=== PATIENT | female | born 1960 | race Caucasian/White ===

== ENCOUNTER 2016-11-18 00:45 | Observation (INO) | payer OTHER ==
[2016-11-18] MEDS ORDERED: SODIUM CHLORIDE 0.9% 1,000 ML IV STA (01:11)
--- NOTE | 2016-11-18 01:16 | ED ---
Back Pain HPI - General Chief Complaint: Back Pain/Injury Stated Complaint: back pain Time Seen by Provider: 11/18/16 01:02 Source: patient, RN notes reviewed, old records reviewed Limitations: no limitations - History of Present Illness Initial Comments: This is a 56-year-old female with chief complaint of mid back pain radiating towards her front for approximately 30 minutes. Patient reports this feels as a heaviness on her chest. Patient denies any shortness of breath, she does feel dizzy. She denies any nausea. She states that she's never had these pains before. She did eat dinner tonight. She was concerned that maybe was a gas both she reports that her pain was initially 7 out of 10. It slowly dwindled now 5 out of 10. Patient denies any flatulence or vomiting. Patient reports pain is not worse with position. Patient is a nonsmoker. History of high blood pressure. She is not a diabetic. Family history of heart disease. - Related Data Home Medications Medication Instructions Recorded Confirmed Atorvastatin [Lipitor] 20 mg PO HS 11/18/16 11/18/16 Venlafaxine HCl [Effexor] 50 mg PO DAILY 11/18/16 11/18/16 Allergies Allergy/AdvReac Type Severity Reaction Status Date / Time acetaminophen [From Lortab] Allergy Rash/Hives Verified 11/18/16 00:55 hydrocodone [From Lortab] Allergy Rash/Hives Verified 11/18/16 00:55 Review of Systems ROS Statement: Those systems with pertinent positive or pertinent negative responses have been documented in the HPI. ROS Other: All systems not noted in ROS Statement are negative. Past Medical History Past Medical History: Hypertension History of Any Multi-Drug Resistant Organisms: None Reported Past Surgical History: Hysterectomy Past Psychological History: No Psychological Hx Reported Smoking Status: Never smoker Past Alcohol Use History: Occasional Past Drug Use History: None Reported General Exam - General Exam Comments Initial Comments: Pleasant 56-year-old female. No distress. Limitations: no limitations General appearance: alert, in no apparent distress Head exam: Present: atraumatic, normocephalic, normal inspection Eye exam: Present: normal appearance, PERRL, EOMI. Absent: scleral icterus, conjunctival injection, periorbital swelling ENT exam: Present: normal exam, mucous membranes moist Neck exam: Present: normal inspection. Absent: tenderness, meningismus, lymphadenopathy Respiratory exam: Present: normal lung sounds bilaterally. Absent: respiratory distress, wheezes, rales, rhonchi, stridor Cardiovascular Exam: Present: regular rate GI/Abdominal exam: Present: soft, normal bowel sounds. Absent: distended, tenderness, guarding, rebound, rigid Extremities exam: Present: normal inspection, full ROM, normal capillary refill. Absent: tenderness, pedal edema, joint swelling, calf tenderness Back exam: Present: normal inspection Course Vital Signs 11/18/16 11/18/16 00:50 02:56 Temperature 97.2 F L 98.5 F Pulse Rate 75 79 Respiratory 18 20 Rate Blood Pressure 133/83 128/80 O2 Sat by Pulse 99 98 Oximetry Medical Decision Making - Medical Decision Making Is a 46-year-old female 30 minutes of mid back pain rating towards the front of her chest. EKG was performed no significant changes at this time. Patient was given GI cocktail IV fluids and lab work obtained. Patient reports that her pain did not diminish after a GI cocktail. She states it does feel like a heaviness on her chest. Patient's initial cardiac enzymes are all negative. Chest x-ray and KUB are also normal. Patient pain is producible. She does state she feels a little dizzy. Patient will be admitted for serial troponins. Discussed case with Dr. Daniel. She'll be admitted and have cardiology consult. - Lab Data Result diagrams: 11/18/16 01:28 11/18/16 01:28 Lab Results 11/18/16 11/18/16 11/18/16 Range/Units 01:28 01:28 01:28 WBC 4.6 (3.8-10.6) k/uL RBC 4.34 (3.80-5.40) m/uL Hgb 13.6 (11.4-16.0) gm/dL Hct 39.7 (34.0-46.0) % MCV 91.5 (80.0-100.0) fL MCH 31.4 (25.0-35.0) pg MCHC 34.3 (31.0-37.0) g/dL RDW 13.0 (11.5-15.5) % Plt Count 150 (150-450) k/uL Neutrophils % 50 % Lymphocytes % 37 % Monocytes % 7 % Eosinophils % 3 % Basophils % 1 % Neutrophils # 2.3 (1.3-7.7) k/uL Lymphocytes # 1.7 (1.0-4.8) k/uL Monocytes # 0.3 (0-1.0) k/uL Eosinophils # 0.1 (0-0.7) k/uL Basophils # 0.0 (0-0.2) k/uL PT (9.0-12.0) sec INR (<1.1) APTT (22.0-30.0) sec D-Dimer (<0.60) mg/L FEU Sodium 142 (137-145) mmol/L Potassium 4.0 (3.5-5.1) mmol/L Chloride 109 H (98-107) mmol/L Carbon Dioxide 30 (22-30) mmol/L Anion Gap 3 mmol/L BUN 16 (7-17) mg/dL Creatinine 0.80 (0.52-1.04) mg/dL Est GFR (MDRD) Af Amer >60 (>60 ml/min/1.73 sqM) Est GFR (MDRD) Non-Af >60 (>60 ml/min/1.73 sqM) Glucose 99 (74-99) mg/dL Calcium 9.1 (8.4-10.2) mg/dL Magnesium 2.2 (1.6-2.3) mg/dL Total Bilirubin 0.2 (0.2-1.3) mg/dL AST 26 (14-36) U/L ALT 34 (9-52) U/L Alkaline Phosphatase 60 (38-126) U/L Total Creatine Kinase 116 (30-135) U/L CK-MB (CK-2) 1.0 (0.0-2.4) ng/mL CK-MB (CK-2) Rel Index 0.9 Troponin I <0.012 (0.000-0.034) ng/mL Total Protein 6.1 L (6.3-8.2) g/dL Albumin 3.7 (3.5-5.0) g/dL 11/18/16 Range/Units 01:28 WBC (3.8-10.6) k/uL RBC (3.80-5.40) m/uL Hgb (11.4-16.0) gm/dL Hct (34.0-46.0) % MCV (80.0-100.0) fL MCH (25.0-35.0) pg MCHC (31.0-37.0) g/dL RDW (11.5-15.5) % Plt Count (150-450) k/uL Neutrophils % % Lymphocytes % % Monocytes % % Eosinophils % % Basophils % % Neutrophils # (1.3-7.7) k/uL Lymphocytes # (1.0-4.8) k/uL Monocytes # (0-1.0) k/uL Eosinophils # (0-0.7) k/uL Basophils # (0-0.2) k/uL PT 10.2 (9.0-12.0) sec INR 1.0 (<1.1) APTT 23.0 (22.0-30.0) sec D-Dimer 0.41 (<0.60) mg/L FEU Sodium (137-145) mmol/L Potassium (3.5-5.1) mmol/L Chloride (98-107) mmol/L Carbon Dioxide (22-30) mmol/L Anion Gap mmol/L BUN (7-17) mg/dL Creatinine (0.52-1.04) mg/dL Est GFR (MDRD) Af Amer (>60 ml/min/1.73 sqM) Est GFR (MDRD) Non-Af (>60 ml/min/1.73 sqM) Glucose (74-99) mg/dL Calcium (8.4-10.2) mg/dL Magnesium (1.6-2.3) mg/dL Total Bilirubin (0.2-1.3) mg/dL AST (14-36) U/L ALT (9-52) U/L Alkaline Phosphatase (38-126) U/L Total Creatine Kinase (30-135) U/L CK-MB (CK-2) (0.0-2.4) ng/mL CK-MB (CK-2) Rel Index Troponin I (0.000-0.034) ng/mL Total Protein (6.3-8.2) g/dL Albumin (3.5-5.0) g/dL 11/18/16 02:37 EKG shows normal sinus rhythm. Evidence of minor septal infarct age undetermined. Ventricular 72 bpm. KS interval 136 ms. QRS duration 86segs. QT/QTc is 414/453 ms. No evidence of ST elevation or T-wave inversion. Disposition Clinical Impression: Chest pain Disposition: ADMITTED IP TO THIS HOSP Condition: Stable Referrals: Narciso Salas DO [Primary Care Provider] - 1-2 days Time of Disposition: 03:27
[2016-11-18 01:42] LABS: Basophils % (A) 1 %; CH 32.1; CHCM 35.2; Eosinophils # (A) 0.1 k/uL (0-0.7); Eosinophils % (A) 3 %; HCT 39.7 % (34.0-46.0); HDW 2.83; HGB 13.6 gm/dL (11.4-16.0); Luc # (Auto) 0.14; Luc % (Auto) 3; Lymphocytes # (A) 1.7 k/uL (1.0-4.8); Lymphocytes % (A) 37 %; MCH 31.4 pg (25.0-35.0); MCHC 34.3 g/dL (31.0-37.0); MCV 91.5 fL (80.0-100.0); Mean Platelet Volume 7.1; Monocytes # (A) 0.3 k/uL (0-1.0); Monocytes % (A) 7 %; Neutrophils # (A) 2.3 k/uL (1.3-7.7); Neutrophils % (A) 50 %; RBC 4.34 m/uL (3.80-5.40); WBC 4.6 k/uL (3.8-10.6); WBC (Perox) 4.52
[2016-11-18 01:52] LABS: ALT 34 U/L (9-52); AST 26 U/L (14-36); Alkaline Phosphatase 60 U/L (38-126); Anion Gap 3 mmol/L; Blood Urea Nitrogen 16 mg/dL (7-17); Calcium 9.1 mg/dL (8.4-10.2); Carbon Dioxide 30 mmol/L (22-30); Chloride 109 mmol/L (98-107); Glucose 99 mg/dL (74-99); Magnesium 2.2 mg/dL (1.6-2.3); Non-African American GFR(MDRD) >60 (>60 ml/min/1.73 sqM); Sodium 142 mmol/L (137-145); Total Bilirubin 0.2 mg/dL (0.2-1.3); Total Protein 6.1 g/dL (6.3-8.2)
[2016-11-18 01:58] LABS: Prothrombin Time 10.2 sec (9.0-12.0)
[2016-11-18 02:12] LABS: Creatine Kinase 116 U/L (30-135)
--- NOTE | 2016-11-18 02:23 | XR ---
EXAM: XR Chest, 2 Views. CLINICAL HISTORY: Reason: Chest Pain TECHNIQUE: Frontal and lateral views of the chest. COMPARISON: No relevant prior studies available. FINDINGS: Lungs: Unremarkable. No consolidation. Pleural space: Unremarkable. No pneumothorax. Heart: Unremarkable. No cardiomegaly. Mediastinum: Unremarkable. Bones/joints: Unremarkable. IMPRESSION: No acute intrathoracic abnormality is seen.
[2016-11-18 02:25] LABS: Troponin I <0.012 ng/mL (0.000-0.034)
--- NOTE | 2016-11-18 02:26 | XR ---
EXAM: XR Abdomen, 1 View. CLINICAL HISTORY: Reason: Pain TECHNIQUE: Frontal upright views of the abdomen/pelvis. COMPARISON: No relevant prior studies available. FINDINGS: Gastrointestinal tract: Moderate amount of colonic stool throughout. Small air-fluid level in the left upper quadrant, likely in the gastric fundus, another in the medial right upper quadrant may be within the gastric pylorus or duodenal bulb, nonspecific, without significant gastric distention seen. No grossly dilated small or large bowel loops are identified either. Bones/joints: Unremarkable. IMPRESSION: Moderate colonic stool burden without grossly dilated bowel loops or evidence of free air seen, as above.
[2016-11-18] MEDS ORDERED: MAG HYDROX/AL HYDROX/SIMETH 30 ML, HYOSCYAMINE ELIXIR 10 ML, CIMETIDINE HCL 300 MG, LID... PO STA ×4 (02:43)
[2016-11-18] MEDS ORDERED: ACETAMINOPHEN TAB 325 MG TAB PO PRN (03:24)
[2016-11-18] MEDS ORDERED: ONDANSETRON 4 MG/2 ML VIAL IVP PRN (03:24)
[2016-11-18] MEDS ORDERED: KETOROLAC 30 MG/ML 1 ML VIAL IVP PRN (03:24)
[2016-11-18] MEDS ORDERED: NALOXONE 0.4 MG/ML 1 ML VIAL IV PRN (03:24)
[2016-11-18] MEDS ORDERED: SODIUM CHLORIDE 0.9% 1,000 ML IV SCH (03:30)
[2016-11-18 05:09] VITALS: BMI 27.5
[2016-11-18 07:09] LABS: Creatine Kinase 109 U/L (30-135)
[2016-11-18 07:20] LABS: Troponin I <0.012 ng/mL (0.000-0.034)
[2016-11-18 08:40] VITALS: TEMP 97.6
--- NOTE | 2016-11-18 08:42 | P.CRDCN ---
History of Present Illness Consult date: 11/18/16 Requesting physician: Tang Eubanks Consult reason: chest pain Chief complaint: Chest pain History of present illness: This is a 56-year-old female with history of hypertension, hyperlipidemia, who presents to the hospital with symptoms of mid back pain that radiated around to her abdomen. She denies any associated shortness of breath, no nausea, no diaphoresis. She denies any discomfort in the upper chest area. On her way in to the hospital, patient states that she did have some mild heartburn sensation. She denies any prior history of coronary artery disease, no family history of premature coronary artery disease.EKG on arrival here showed a normal sinus rhythm with no acute changes. Chest x-ray did not reveal any acute abnormality. KUB of the abdomen was performed which revealed moderate colonic stool without dilated bowel loops or evidence of free air. The pressure on arrival 132/82 with a heart rate in the 70s. She is 99% on room air. Troponins 2 have been negative, potassium 4.0, BUN 16, creatinine 0.8. CBC normal. The time of my examination this morning, patient is currently pain free, just complaints of feeling tired. Past Medical History Past Medical History: Hypertension History of Any Multi-Drug Resistant Organisms: None Reported Past Surgical History: Hysterectomy Past Anesthesia/Blood Transfusion Reactions: No Reported Reaction Past Psychological History: No Psychological Hx Reported Smoking Status: Never smoker Past Alcohol Use History: Occasional Past Drug Use History: None Reported - Past Family History Mother Family Medical History: CVA/TIA, Myocardial Infarction ([place]) Father Family Medical History: CVA/TIA, Myocardial Infarction ([place]) Medications and Allergies Home Medications Medication Instructions Recorded Confirmed Type Atorvastatin [Lipitor] 20 mg PO HS 11/18/16 11/18/16 History Venlafaxine HCl [Effexor] 50 mg PO HS 11/18/16 11/18/16 History amLODIPine BESYLATE/BENAZEPRIL 1 cap PO DAILY 11/18/16 11/18/16 History [Lotrel 5-40 mg Capsule] Allergies Allergy/AdvReac Type Severity Reaction Status Date / Time acetaminophen [From Lortab] Allergy Rash/Hives Verified 11/18/16 00:55 hydrocodone [From Lortab] Allergy Rash/Hives Verified 11/18/16 00:55 Physical Exam Vitals: Vital Signs Temp Pulse Pulse Resp BP BP Pulse Ox 11/18/16 05:21 96.7 F L 71 18 137/67 93 L 11/18/16 04:36 96.7 F L 71 18 137/67 93 L 11/18/16 04:12 97.2 F L 69 16 136/83 96 Intake and Output 11/17/16 11/18/16 11/18/16 22:59 06:59 14:59 Intake Total 120 0 Balance 120 0 Intake: IV 120 Sodium Chloride 0.9% 1, 120 000 ml @ 120 mls/hr IV . Q8H20M [facility] Rx#:[id number] Oral 0 Other: Voiding Method Toilet Weight 70.5 kg PHYSICAL EXAMINATION: HEENT: [Head is atraumatic, normocephalic. Pupils equal, round. Neck is supple. There is no elevated jugular venous pressure.] HEART EXAMINATION: [Heart S1, S2 normal. No murmur or gallop heard.] CHEST EXAMINATION:[ Lungs are clear to auscultation and precussion. No chest wall tenderness is noted on palpation or with deep breathing.] ABDOMEN: [ Soft, nontender. Bowel sounds are heard. No organomegaly noted]. EXTREMITIES:[ 2+ peripheral pulses with no evidence of peripheral edema and no calf tenderness noted]. NEUROLOGIC [patient is awake, alert and oriented -3.] . Results 11/18/16 01:28 11/18/16 01:28 Cardiac Enzymes 11/18/16 Range/Units 06:01 CK-MB (CK-2) 1.0 (0.0-2.4) ng/mL Troponin I <0.012 (0.000-0.034) ng/mL Current Medications Generic Name Dose Route Start Last Admin Trade Name Freq PRN Reason Stop Dose Admin Acetaminophen 650 mg 11/18/16 03:24 Tylenol Tab PO Q6HR PRN Mild Pain or Fever > 100.5 Sodium Chloride 1,000 mls @ 120 mls/hr 11/18/16 03:30 11/18/16 04:12 Saline 0.9% IV 120 mls/hr .Q8H20M ZANA Administration Ketorolac Tromethamine 30 mg 11/18/16 03:24 Toradol IVP 11/23/16 03:25 Q6HR PRN Moderate Pain Naloxone HCl 0.2 mg 11/18/16 03:24 Narcan IV Q2M PRN Opioid Reversal Ondansetron HCl 4 mg 11/18/16 03:24 Zofran IVP Q8HR PRN Nausea And Vomiting Pantoprazole Sodium 40 mg 11/18/16 09:00 Protonix IV DAILY ZANA Intake and Output 11/17/16 11/18/16 11/18/16 22:59 06:59 14:59 Intake Total 120 0 Balance 120 0 Intake: IV 120 Sodium Chloride 0.9% 1, 120 000 ml @ 120 mls/hr IV . Q8H20M ZANA Rx#:[id number] Oral 0 Other: Voiding Method Toilet Weight 70.5 kg EKG Interpretations (text) EKG shows normal sinus rhythm with no acute changes. Assessment and Plan Plan: Assessment and plan #1 Symptoms of mid back pain with radiation to the abdomen, atypical for acute coronary syndrome. Troponins negative 2. EKG shows normal sinus rhythm with no acute changes noted. #2 hypertension #3 hyperlipidemia Plan We'll obtain an echocardiogram with Doppler study. Patient has also been advised to undergo stress test for more definitive diagnosis, if the stress test and echocardiogram are normal, patient may be able to be discharged from cardiology standpoint. Further recommendations to follow. DNP note has been reviewed, I agree with a documented findings and plan of care. Patient was seen and examined.
[2016-11-18] MEDS ORDERED: PANTOPRAZOLE 40 MG/10 ML VIAL IV SCH (09:00)
[2016-11-18 09:08] LABS: Cholesterol 152 mg/dL (<200); HDL Cholesterol 78 mg/dL (40-60); Triglycerides 48 mg/dL (<150)
--- NOTE | 2016-11-18 10:21 | ECHOF ---
Referral Reason:chest pain MEASUREMENTS -------- HEIGHT: 165.1 cm WEIGHT: 70.3 kg BP: 137/65 IVSd: 0.9 cm (0.6 - 1.1) LVIDd: 3.7 cm (3.9 - 5.3) LVPWd: 0.9 cm (0.6 - 1.1) IVSs: 1.5 cm LVIDs: 2.5 cm LVPWs: 1.5 cm Ao Diam: 2.4 cm (2.0 - 3.7) AV Cusp: 2.1 cm (1.5 - 2.6) LA Diam: 2.7 cm (2.7 - 3.8) MV EXCURSION: 21.258 mm (> 18.000) MV EF SLOPE: 132 mm/s (70 - 150) EPSS: 0.2 cm MV E Joo: 0.97 m/s MV DecT: 132 ms MV A Joo: 0.89 m/s MV E/A Ratio: 1.10 RAP: 5.00 mmHg RVSP: 21.43 mmHg FINDINGS -------- Sinus rhythm. This was a technically good study. Left ventricular wall thickness is normal. Overall left ventricular systolic function is normal with, an EF between 55 - 60 %. The right ventricle is normal in size and function. The left atrium is normal in size. The right atrium was not well visualized. Aortic valve is trileaflet and is mildly thickened. The mitral valve leaflets are mildly thickened. Mild mitral annular calcification present. Mild mitral regurgitation is present. Mild tricuspid regurgitation present. The right ventricular systolic pressure, as measured by Doppler, is 21.43mmHg. Pulmonic valve appears structurally normal. The aortic root size is normal. The pericardium is normal. CONCLUSIONS -------- 1. Sinus rhythm. 2. Mild mitral annular calcification present. 3. Mild mitral regurgitation is present. 4. Mild tricuspid regurgitation present. 5. The right ventricular systolic pressure, as measured by Doppler, is 21.43mmHg. 6. Pulmonic valve appears structurally normal. 7. The aortic root size is normal. 8. The pericardium is normal. 9. This was a technically good study. 10. Left ventricular wall thickness is normal. 11. Overall left ventricular systolic function is normal with, an EF between 55 - 60 %. 12. The right ventricle is normal in size and function. 13. The left atrium is normal in size. 14. The right atrium was not well visualized. 15. Aortic valve is trileaflet and is mildly thickened. 16. The mitral valve leaflets are mildly thickened. CAMPGROUND CLEANING ATTENDANT: Marina Schmidt RDCS
[2016-11-18] MEDS ORDERED: amLODIPine 5 MG TAB PO SCH (11:00)
[2016-11-18] MEDS ORDERED: LISINOPRIL 20 MG TAB PO SCH (11:00)
--- NOTE | 2016-11-18 12:08 | ECHOS ---
DATE OF SERVICE: 11/18/2016 AGE: 56Y SEX: F HT: 63" WT: 155.6 lbs. Protocol Brett: Others: Stage: Dur. of Exercise: 6 minutes *Heart Rate Blood Pressure *Rest: 70 Rest: 123/92 * *Max. Achieved: 156 Maximum BP: 193/63 85% PMHR: 141 100% PMHR: 166 *METS: 6.8 INDICATIONS: Chest pain. MEDICATIONS: See list. Clinical information: Chest pain, hypertension, history of hypercholesterolemia, family history of coronary artery disease, history of asthma. Resting ECG shows sinus rhythm, rate of 70 beats per minute, DE interval of 0.16, QRS 0.08, normal ST-T waves. Utilizing a standard Brett protocol, a symptom limited treadmill test was performed. Patient exercised for total of 6 minutes, attained a peak heart rate of 156 beats per minute, which is approximately 94% predicted maximum heart rate without any chest pain or pressure or ST segment deviations indicative of ischemia or cardiac arrhythmias. Patient did not report any symptoms throughout the study. Baseline images show normal thickening and contractility. Postexercise images show improved contractility and thickening in all segments, consistent with normal stress echocardiogram. Development Disability Specialist impression: 1. Normal stress echocardiogram. 2. No symptoms are reported throughout the study, no ST segment depressions are noted throughout the study. 3. Patient has slightly below average level of cardiopulmonary fitness as indicated by VO2 max and METs. 4. Patient attained peak metabolic activity equivalent to 7 METs.
[2016-11-18 12:54] VITALS: BP 125/83; PULSE 75; RESP 18
[2016-11-18] MEDS ORDERED: ASPIRIN 81 MG CHEW PO SCH (14:00)
--- NOTE | 2016-11-18 14:44 | HP ---
DATE OF ADMISSION: 11/18/2016 PRESENTING COMPLAINT: Chest pain. HISTORY OF PRESENTING COMPLAINT: This is a pleasant 56-year-old patient of Dr. Salas out of [place]. Patient's chronic stable medical conditions include hypertension, hyperlipidemia, depression. Patient was lying down last night when she developed pain in the middle of the back. He came around to the left side of the chest. There was no shortness of breath. No perspiration, no dizziness. Patient was concerned about the heart and decided to come in for the same. Patient is pretty active, otherwise but no prior cardiac history. REVIEW OF SYSTEMS: CONSTITUTIONAL: None. HEENT: None. RESPIRATORY: None. CARDIOVASCULAR: As above. GASTROINTESTINAL: None. GENITOURINARY: None. MUSCULOSKELETAL: None. DERMATOLOGICAL: None. HEMATOLOGIC: None. LYMPHATICS: None. PSYCHIATRY: None. NEUROLOGICAL: None. Past medical history of hypertension, hyperlipidemia, depression. PAST SURGICAL HISTORY: Hysterectomy. SOCIAL HISTORY: No smoking, alcohol occasionally. . Patient works as a school police aide. FAMILY HISTORY: Mother had heart attack in her 60s, stroke. HOME MEDICATIONS: 1. Lotrel 5/40 one capsule p.o. daily. 2. Effexor 50 mg p.o. q.h.s. 3. Lipitor 20 mg p.o. q.h.s. Allergies to LORTAB. On examination, vital signs on presentation: Temperature 97.2, pulse 75, respirations 18, blood pressure 133/83, pulse ox 99% on room air. GENERAL APPEARANCE: Average build, lying in bed, comfortable. EYES: Pupils equal. Conjunctivae normal. HEENT: Oral cavity normal. NECK: JVD not raised. Mass not palpable. RESPIRATORY: Effort normal. LUNGS: Clear. CARDIOVASCULAR: First and second sounds normal. No edema. ABDOMEN: Soft, nontender. Liver and spleen not palpable. LYMPHATIC: No lymph node palpable in neck or axillae. PSYCHIATRY: Alert and oriented x3. Mood and affect normal. NEUROLOGICAL: Pupils equal. Cranial nerves grossly intact. Power and sensation grossly intact. INVESTIGATIONS: White count 4.6, hemoglobin 13.6, platelets 150, potassium 4.0, BUN and creatinine are normal. Troponin x2 negative. LDL is 64. EKG unremarkable. Chest x-ray unremarkable. A 2-D echocardiogram shows EF of 55% to 60%. ASSESSMENT: 1. This is a patient who has pain in the middle of the back, coming out the left side, could be musculoskeletal but need to rule out a cardiac cause given her positive family history and risk factor of hypertension. 2. Essential hypertension. 3. Hyperlipidemia. 4. Depression, not otherwise specified. PLAN: Cardiology was consulted, serial cardiac enzymes are in place. Patient was put on aspirin, a stress test per Cardiology and home medications will be resumed. Care was discussed with the patient.
[2016-11-18] MEDS ORDERED: VENLAFAXINE HCL 50 MG TAB PO SCH (21:00)
[2016-11-18] MEDS ORDERED: ATORVASTATIN 20 MG TAB PO SCH (21:00)
[2016-11-19] MEDS ORDERED: PANTOPRAZOLE 40 MG TABLET PO SCH (07:30)
--- NOTE | 2016-11-20 17:15 | DS ---
DATE OF ADMISSION: 11/18/2016 DATE OF DISCHARGE: 11/18/2016 FINAL DIAGNOSES: 1. Left-sided chest pain, probably musculoskeletal. 2. Essential hypertension. 3. Hyperlipidemia. 4. Depression not otherwise specified. HOSPITAL COURSE: This patient presented with chest pain. Troponins were negative. LDL was 64. Patient underwent a stress echocardiogram that was negative. On examination, some left-sided reproducible pain. CONSULTATION: Dr. Morales from Cardiology. HOSPITAL COURSE: This patient presented with chest pain. Everything was negative. DISCHARGE MEDICATIONS: 1. Aspirin 81 mg a day. 2. Lipitor 20 mg at bedtime. 3. Effexor 50 mg at bedtime. 4. Lotrel 5/40 one capsule p.o. daily. Follow up with Dr. Salas in 2 days. On examination, lungs are clear. Some reproducible pain in the left chest wall.
== END 2016-11-18 14:47 | disposition home or self-care (01) ==
LOC: EC 00:45 → 6SEL 04:02
PROVIDERS: ADMIT Hospitalist; ATTEND Hospitalist
DX: R07.9 Chest pain, unspecified (principal); M54.9 Dorsalgia, unspecified; I10 Essential (primary) hypertension; E78.5 Hyperlipidemia, unspecified; F32.9 Major depressive disorder, single episode, unspecified; R42 Dizziness and giddiness; R10.9 Unspecified abdominal pain; Z82.49 Family history of ischemic heart disease and other diseases of the circulatory system; Z82.3 Family history of stroke; Z79.899 Other long term (current) drug therapy; Z88.5 Allergy status to narcotic agent
CPT/HCPCS: 96361 ×2; 96374; 96360; 99284; 36415; 93005; 93017; 93306; 93350; 85379; 80061; 80053; 82550; 82553; 83735; 84484; 85025; 85610; 85730; 71020; 74000; G0378; C9113

== ENCOUNTER 2021-05-18 18:18 | Emergency (ER) | payer OTHER ==
--- NOTE | 2021-05-18 22:39 | ED ---
Psych HPI - General Chief Complaint: Psychiatric Symptoms Stated Complaint: EPS eval Time Seen by Provider: 05/18/21 19:13 Source: patient, RN notes reviewed Mode of arrival: ambulatory - History of Present Illness Initial Comments: Patient is a 60-year-old female that presents to emergency room complaining of suicidal ideations patient was she was sent by primary care due to the suicidal ideations. Patient was very guarded and did not want to give up information or history willingly. She notes that she only has thoughts with no plans at this time. She is otherwise well-appearing. She denied any chest pain first breath headache nausea vomiting diarrhea constipation fever fatigue chills. - Related Data Home Medications Medication Instructions Recorded Confirmed Atorvastatin [Lipitor] 20 mg PO HS 11/18/16 11/18/16 Venlafaxine HCl [Effexor] 50 mg PO HS 11/18/16 11/18/16 amLODIPine BESYLATE/BENAZEPRIL 1 cap PO DAILY 11/18/16 11/18/16 [Lotrel 5-40 MG] Previous Rx's Medication Instructions Recorded Aspirin 81 mg PO DAILY chew 11/18/16 Allergies Allergy/AdvReac Type Severity Reaction Status Date / Time acetaminophen [From Lortab] Allergy Rash/Hives Verified 05/18/21 18:52 hydrocodone [From Lortab] Allergy Rash/Hives Verified 05/18/21 18:52 Review of Systems ROS Statement: Those systems with pertinent positive or pertinent negative responses have been documented in the HPI. ROS Other: All systems not noted in ROS Statement are negative. Past Medical History Past Medical History: Hypertension History of Any Multi-Drug Resistant Organisms: None Reported Past Surgical History: Hysterectomy Past Anesthesia/Blood Transfusion Reactions: No Reported Reaction Past Psychological History: No Psychological Hx Reported Smoking Status: Never smoker Past Alcohol Use History: Occasional Past Drug Use History: None Reported - Past Family History Mother Family Medical History: CVA/TIA, Myocardial Infarction ([place]) Father Family Medical History: CVA/TIA, Myocardial Infarction ([place]) General Exam Limitations: no limitations Head exam: Present: atraumatic, normocephalic, normal inspection Eye exam: Present: normal appearance, PERRL, EOMI. Absent: scleral icterus, conjunctival injection, periorbital swelling ENT exam: Present: normal exam, mucous membranes moist Neck exam: Present: normal inspection Respiratory exam: Present: normal lung sounds bilaterally. Absent: respiratory distress, wheezes, rales, rhonchi, stridor Cardiovascular Exam: Present: regular rate, normal rhythm, normal heart sounds. Absent: systolic murmur, diastolic murmur, rubs, gallop, clicks Extremities exam: Present: normal inspection, full ROM, normal capillary refill. Absent: tenderness, pedal edema, joint swelling, calf tenderness Neurological exam: Present: alert, oriented X3 Psychiatric exam: Present: normal affect, depressed, suicidal ideation. Absent: homicidal ideation Skin exam: Present: warm, dry, intact, normal color. Absent: rash Course Vital Signs 05/18/21 18:52 Temperature 98 F Pulse Rate 78 Respiratory 18 Rate Blood Pressure 124/81 O2 Sat by Pulse 98 Oximetry Medical Decision Making - Medical Decision Making 60-year-old female complaining of suicidal ideations have a primary care. Occult blood test, urine drug screen ordered. EPS was notified. EPS did a extensive interview and states that patient will follow-up outpatient with resources. Case discussed with Dr. Harding, patient discharge home. Disposition Clinical Impression: Suicidal ideation Disposition: HOME SELF-CARE Condition: Stable Instructions (If sedation given, give patient instructions): Suicide Prevention (ED) Additional Instructions: Please return to the Emergency Department if symptoms worsen or any other concerns. Follow-up with primary care 1-2 days. Follow-up with therapist this is possible. Is patient prescribed a controlled substance at d/c from ED?: No Referrals: Juanita Cabrera DO [Primary Care Provider] - 1-2 days Time of Disposition: 22:40
[2021-05-18 23:06] VITALS: BP 126/77; PULSE 74; RESP 16; TEMP 98.2
== END 2021-05-18 23:05 | disposition home or self-care (01) ==
LOC: EC 18:18
DX: R45.851 Suicidal ideations (principal); I10 Essential (primary) hypertension; Z88.6 Allergy status to analgesic agent; Z88.5 Allergy status to narcotic agent; Z79.899 Other long term (current) drug therapy
CPT/HCPCS: 82075; 99284